=== PATIENT | female | born 1980 | race Caucasian/White ===

== ENCOUNTER 2017-11-02 11:39 | Day surgery (SDC) | payer OTHER ==
[2017-11-02 12:40] VITALS: BMI 20.9
[2017-11-02] MEDS ORDERED: Lidocaine 4% (Laryng-O-Jet) Kit MM ONE (12:54)
[2017-11-02] MEDS ORDERED: Propofol 10 mg/ml Inj (20 ML) ONE (13:11)
[2017-11-02] MEDS ORDERED: Etomidate 20 mg/10ml Inj IV ONE (13:11)
[2017-11-02] MEDS ORDERED: Lidocaine Hydrochloride 10 ML INJ ONE (13:12)
[2017-11-02] MEDS ORDERED: ePHEDrine 50 mg/ml Inj ONE (13:12)
--- NOTE | 2017-11-02 17:12 | CARD ---
APPROVED REPORT Date of service: 11/02/2017 EXAM: Transesophageal echocardiogram with color flow Doppler. INDICATION Dyspnea R/O ENDOCARDITIS Mitral Valve E/A ratio0.0 TDI E/Lateral E'0.0E/Medial E'0.0 Reason For Test : R/o VSD PROCEDURE After obtaining informed consent, patient underwent transesophageal echo in the [employer]. Type of Sedation : Conscious Sedation Sedation was provided by anesthesiologist. Sedation was achieved with intravenously. Transesophageal probe was inserted and advanced into esophagus without difficulty. The ANNIE was performed without complications. Throughout the procedure, the blood pressure, pulse oximetry, cardiac rhythm, and rate were monitored. The patient tolerated the procedure without adverse effects. Recovery from conscious sedation was uneventful and vital signs were stable. LEFT VENTRICLE The left ventricle is normal size. There is mild asymmetric septal hypertrophy. The left ventricular function is normal. The left ventricular ejection fraction is within the normal range. There is normal LV segmental wall motion. There is no ventricular septal defect visualized. RIGHT VENTRICLE The right ventricle is normal size. There is normal right ventricular wall thickness. The right ventricular systolic function is normal. ATRIA The left atrium size is normal. The right atrium size is normal. The interatrial septum is intact with no evidence for an atrial septal defect. AORTIC VALVE The aortic valve is mildly thickened. There is trace to mild aortic regurgitation. There is no aortic valvular stenosis. MITRAL VALVE The mitral valve is normal in structure. There is no mitral valve stenosis. There is no mitral valve regurgitation noted. TRICUSPID VALVE The tricuspid valve leaflets display thickening. PULMONIC VALVE The pulmonary valve is normal in structure. There is no pulmonic valvular regurgitation. GREAT VESSELS The aortic root is mildly enlarged. <Conclusion> The left ventricle is normal size. There is mild asymmetric septal hypertrophy. The left ventricular function is normal. The left ventricular ejection fraction is within the normal range. There is normal LV segmental wall motion. The interatrial septum is intact with no evidence for an atrial septal defect. There is no ventricular septal defect visualized. The aortic valve is mildly thickened. There is trace to mild aortic regurgitation. The aortic root is mildly enlarged.
== END 2017-11-02 15:40 | disposition short-term general hospital (02) ==
LOC: C.CATHLAB 11:39
PROVIDERS: ATTEND Specialist
DX: I38 Endocarditis, valve unspecified (principal)
CPT/HCPCS: 84703; 93312; J2704